=== PATIENT | female | born 1960 | race Caucasian/White ===

== ENCOUNTER 2019-08-21 12:01 | Outpatient (CLI) | payer BC, SELFPAY ==
--- NOTE | 2019-08-21 | XR_ITS ---
WS: [id number] Right shoulder, 2 views, 08/21/2019 Clinical Data: RT SHOULDER PAIN Comparison: None. Findings: No fractures or dislocations are seen. The AC joint is normal. The adjacent right clavicle, right sca pula and ribs are normal. The soft tissues are unremarkable. XR/XR shoulder RT min 2V* [id number] Impression: Negative right shoulder.
== END 2019-08-21 12:02 | disposition home or self-care (01) ==
LOC: RADWPI 12:06
PROVIDERS: Family Provider Family Medicine; PCP Family Medicine; Visit Provider Nurse Practitioner Family
DX: M25.511 Pain in right shoulder (principal)
CPT/HCPCS: 73030

== ENCOUNTER 2020-03-13 13:58 | Outpatient (CLI) | payer OTHER, SELFPAY ==
--- NOTE | 2020-03-13 14:04 | MM_ITS ---
WS: [id number] BILATERAL SCREENING DIGITAL MAMMOGRAM WITH CAD HISTORY: SCREENING COMPARISON: 01/28/2019 and 04/06/2016 Bilateral CC and MLO views submitted. Computer aided detection analyzed. Breast composition: There are scattered areas of fibroglandular density. No suspicious masses, microc alcifications or architectural distortion. Stable asymmetry and nodules in the upper outer quadrant o f the LEFT breast. MM/[place] [id number] IMPRESSION: BI-RADS: 2-Benign FOLLOW UP: 1 Year Follow-up
== END 2020-03-13 13:59 | disposition home or self-care (01) ==
LOC: RADSHAW 14:01
PROVIDERS: PCP Internal Medicine; Visit Provider Internal Medicine
DX: Z12.31 Encounter for screening mammogram for malignant neoplasm of breast (principal)
CPT/HCPCS: 77067

== ENCOUNTER 2021-08-02 09:20 | Outpatient (CLI) | payer OTHER, SELFPAY ==
--- NOTE | 2021-08-02 09:30 | MM_ITS ---
WS: [id number] BILATERAL SCREENING DIGITAL BREAST TOMOSYNTHESIS MAMMOGRAM WITH CAD HISTORY: SCREENING COMPARISON: 03/13/2021, 01/28/2019 and 04/06/2016 Bilateral CC and MLO views with tomosynthesis and synthetic mammography submitted. Computer aided det ection analyzed. Breast composition: There are scattered areas of fibroglandular density. No suspicious masses, microc alcifications or architectural distortion. Stable calcifications and nodules within each breast. MM/[place] [id number] IMPRESSION: BI-RADS: 2-Benign FOLLOW UP: 1 Year Follow-up
== END 2021-08-02 09:21 | disposition home or self-care (01) ==
LOC: RAD 09:22
PROVIDERS: PCP Internal Medicine; Visit Provider Nurse Practitioner Family
DX: Z12.31 Encounter for screening mammogram for malignant neoplasm of breast (principal)
CPT/HCPCS: 77063; 77067

== ENCOUNTER 2022-06-20 15:40 | Outpatient (CLI) | payer OTHER, SELFPAY ==
--- NOTE | 2022-06-20 | MR_ITS ---
WS: [id number] MRI RIGHT KNEE NONCONTRAST TECHNIQUE: Axial PD, coronal PD fat sat, coronal PD, sagittal PD, and sagittal PD fat-sat images obta ined. CLINICAL INFORMATION: RT KNEE PAIN COMPARISON: None. FINDINGS: Distal quadriceps and patella tendons are intact. Hypertrophic patella. Small amount of prepatellar a nd infrapatellar soft tissue edema. Moderate tricompartmental arthritis. Normal ACL and PCL. Thinning of the medial meniscus. Peripheral extrusion of the medial meniscus with a chronic appearing tear wi th blunting of the medial meniscal root. Moderate narrowing of the medial joint compartment. Small suprapatellar effusion. Normal medial and lateral patellar retinaculum. Normal popliteal fossa. Normal medial and lateral collateral ligaments. Moderate chondromalacia patella worse involving the l ateral patella facet. MR/MR knee RT wo con* [id number] IMPRESSION: 1. Prepatellar and infrapatellar soft tissue edema likely due to recent trauma .Correlation for prepatellar bursitis. 2. Normal ACL and PCL. 3. Moderate tricompartmental arthritis worse in the medial joint compartment. Chronic appearing blunting of the medial meniscal root likely due to chronic te ar with peripheral extrusion. 4. Normal medial and lateral collateral ligaments. 5. Grade III chondromalacia involving the medial joint compartment. 6. Mild to moderate chondromalacia patella. Outbridge grading:
== END 2022-06-20 15:41 | disposition home or self-care (01) ==
LOC: RAD 15:56
PROVIDERS: PCP Internal Medicine; Visit Provider Orthopaedic Surgery
DX: M70.41 Prepatellar bursitis, right knee (principal); M17.11 Unilateral primary osteoarthritis, right knee; M22.41 Chondromalacia patellae, right knee; R60.0 Localized edema
CPT/HCPCS: 73721

== ENCOUNTER 2022-08-04 08:44 | Outpatient (CLI) | payer OTHER, SELFPAY ==
--- NOTE | 2022-08-04 08:52 | MM_ITS ---
WS: [id number] BILATERAL SCREENING DIGITAL TOMOSYNTHESIS MAMMOGRAM WITH CAD HISTORY: SCREENING COMPARISON: 08/02/2021 03/13/2020 Bilateral CC and MLO views with tomosynthesis and synthetic mammography submitted. Computer aided det ection analyzed. Breast composition: There are scattered areas of fibroglandular density. No suspicious masses, microc alcifications or architectural distortion. Stable masses within the LEFT breast upper outer quadrant. MM/[place] [id number] IMPRESSION: BI-RADS: 2-Benign FOLLOW UP: 1 Year Follow-up
== END 2022-08-04 08:45 | disposition home or self-care (01) ==
PROVIDERS: PCP Internal Medicine; Visit Provider Nurse Practitioner Family
DX: Z12.31 Encounter for screening mammogram for malignant neoplasm of breast (principal)
CPT/HCPCS: 77063; 77067

== ENCOUNTER 2023-07-21 10:04 | Outpatient (CLI) | payer OTHER, SELFPAY ==
--- NOTE | 2023-07-21 10:24 | XRR_ITS ---
PROCEDURE INFORMATION: Exam: XR Left Ribs with PA Chest Exam date and time: 07/21/2023 10:33 AM Age: 62 years old Clinical indication: Chest wall pain; Patient HX: Intermnittent posterior left lower rib pain; No known injury; Additional info: Left sided rib pain TECHNIQUE: Imaging protocol: Radiologic exam of the left ribs with PA chest. Views: 3 views COMPARISON: No relevant prior studies available. FINDINGS: Lungs: No pulmonary consolidation. Pleural spaces: No pleural effusion. No pneumothorax. Heart/Mediastinum: The heart appears enlarged; this may be exaggerated by AP technique and low lung volumes. No gross evidence of pneumomediastinum. Bones/joints: No acute fracture is identified. XR/XR ribs LT 2V* [id number] IMPRESSION: 1. No acute fracture is identified. 2. The heart appears enlarged; this may be exaggerated by AP technique and low lung volumes.
== END 2023-07-21 10:05 | disposition home or self-care (01) ==
PROVIDERS: PCP Internal Medicine; Visit Provider Nurse Practitioner Family
DX: R07.81 Pleurodynia (principal)
CPT/HCPCS: 71100

== ENCOUNTER 2024-05-10 19:43 | Emergency (ER) | payer OTHER, SELFPAY ==
[2024-05-10 19:51] VITALS: BP 188/106; PULSE 65; RESP 16; TEMP 36.7; O2SAT 98
--- NOTE | 2024-05-10 19:58 | CTR_ITS ---
PROCEDURE INFORMATION: Exam: CT Cervical Spine Without Contrast Exam date and time: 05/10/2024 8:20 PM Age: 63 years old Clinical indication: Injury or trauma; Fall; Blunt trauma; Patient fell walking down concrete steps and sustained headstrike. Hematoma to RT posterior parietal. ; Additional info: Fall, head trauma TECHNIQUE: Imaging protocol: Computed tomography of the cervical spine without contrast. Radiation optimization: All CT scans at this facility use at least one of these dose optimization techniques: automated exposure control; mA and/or kV adjustment per patient size (includes targeted exams where dose is matched to clinical indication); or iterative reconstruction. COMPARISON: CT head wo con* [id number] 05/10/2024 8:17 PM RADIATION DOSE METRICS: Total DLP (mGy-cm): 512.98 FINDINGS: Bones: No acute fracture. Normal alignment. No significant disc bulge or herniation. No severe spinal canal stenosis. No significant neural foraminal narrowing. There is anterior and posterior osteophyte formation involving the lower cervical spine. Diffuse facet arthropathy. Lungs: Lung apices are normal. Soft tissues: Unremarkable. CT/CT cervical spin wo con* [id number] IMPRESSION: No acute findings. Mild degenerative changes.
--- NOTE | 2024-05-10 19:58 | XRR_ITS ---
PROCEDURE INFORMATION: Exam: XR Left Shoulder Exam date and time: 05/10/2024 8:05 PM Age: 63 years old Clinical indication: Injury or trauma; Fall; Blunt trauma (contusions or hematomas); Patient fell walking down concrete steps. C/O left shoulder pain. TECHNIQUE: Imaging protocol: Radiologic exam of the left shoulder. Views: 2 or more views. COMPARISON: CR XR ribs LT 2V* [id number] 07/21/2023 10:33 AM FINDINGS: Bones/joints: No findings of fracture or dislocation. There is mild glenohumeral and acromioclavicular osteoarthritis. Visualized left ribs appear intact. Soft tissues: Normal. XR/XR shoulder LT min 2V* [id number] IMPRESSION: No evidence of acute fracture or dislocation. Mild glenohumeral and acromioclavicular osteoarthritis.
--- NOTE | 2024-05-10 19:58 | CTR_ITS ---
PROCEDURE INFORMATION: Exam: CT Head Without Contrast Exam date and time: 05/10/2024 8:17 PM Age: 63 years old Clinical indication: Injury or trauma; Fall; Blunt trauma (contusions or hematomas); Patient fell walking down concrete steps and sustained headstrike. Hematoma to RT posterior parietal. ; Additional info: Fall, head trauma TECHNIQUE: Imaging protocol: Computed tomography of the head without contrast. Radiation optimization: All CT scans at this facility use at least one of these dose optimization techniques: automated exposure control; mA and/or kV adjustment per patient size (includes targeted exams where dose is matched to clinical indication); or iterative reconstruction. COMPARISON: No relevant prior studies available. RADIATION DOSE METRICS: Total DLP (mGy-cm): 1103.48 FINDINGS: Brain: Normal. No hemorrhage. Unremarkable white matter. No mass effect. Cerebral ventricles: No ventriculomegaly. Paranasal sinuses: Visualized sinuses are unremarkable. No fluid levels. Mastoid air cells: Visualized mastoid air cells are well aerated. Bones: Unremarkable. No acute fracture. Soft tissues: Mild right posterior scalp soft tissue swelling. CT/CT head wo con* [id number] IMPRESSION: 1. No acute intracranial abnormality. 2. Mild right posterior scalp soft tissue swelling
[2024-05-10 20:06] VITALS: BP 168/82; PULSE 70; RESP 16; O2SAT 97
--- NOTE | 2024-05-10 20:37 | ED_ITS ---
HPI - Fall General: Chief Complaint: Fall Stated Complaint: Fell Hit head on L side and back, L hand Time Seen by Provider: 05/10/24 19:58 Source: patient Mode of arrival: ambulatory Limitations: no limitations History of Present Illness: 63yo female presents with significant ot her for evaluation following a slip and fall. States was walking outside and slipped on the wet concrete, falling backward. She landed on the posterior left shoulder area, then hit her head. States she has previous history of left rib pain that she sees a chiropractor for. States she does not have pain with touch of the left posterior ribs, only with movement. She denies loss of consciousness, vomiting, use of blood thinners, difficulty breathing, shortness of breath, any other concerns at this time. Related Data Previous Rx's ?Medication ?Instructions ?Recorded prednisone 20 mg tablet 20 mg PO BID 5 days #10 tabs 11/27/23 ketorolac 10 mg tablet 10 mg PO Q6H PRN pain 5 days #20 05/10/24 tabs tizanidine 4 mg tablet 4 mg PO Q8H PRN muscle spast icity 05/10/24 #20 tabs Allergies Allergy/AdvReac Type Severity Reaction Status Date / Time No Known Allergies Allergy Verified 05/10/24 19:56 Review of Systems Const: Denies: fever(s) or chills Eyes: Denies: change in vision Resp: Denies: dyspnea or pain on inspiration GI: Denies: vomiting Musc: Reports: extremity pain (left shoulder) Neuro: Denies: numbness in extremities or weakness in extremities [facility] ED PFSH: Social History (Updated 11/27/23 @ 14:21 by Alice Baeza NP) Smoking and tobacco/nicotine status: never used tobacco/nicotine Alcohol intake: never Substance/Drug Use: never Physical Exam Const: COMMON NORMALS: no acute distress, patient oriented x3 and alert GE NERAL APPEARANCE: cooperative ORIENTATION/CONSCIOUSNESS: Yes awake OTHER: Patient is sitting upright on the stretcher in [facility]. She is able to give history with no difficulty. Family is at bedside. HENMT: COMMON NORMALS: normocephalic and Normal external nose present HEAD & SCALP: normocephalic NOSE: Normal external nose present Chest: CHEST: Yes Symmetrical chest wall rise and No localized rib tenderness with anteroposterior compression Resp: COMMON NORMALS: normal respiratory effort, No use of accessory muscles and clear to auscultation bilaterally EFFORT & INSPECTION: Yes able to speak in complete sentences AUSCULTATION: clear to auscultation bilaterally Cardio: COMMON NORMALS: regular rate and regular rhythm RATE: regular rate RHYTHM: regular rhythm Extremity: LEFT UPPER EXTREMITY: Yes shoulder joint (pain anterior area with movement) Left shoulder joint: Yes ROM Neuro: COMMON NORMALS: patient oriented x3 SENSORIUM/ORIENTATION: Yes alert Course Reevaluation(s): Reevaluation #1: Reevaluated patient after medication ministration. She reported that she was feeling somewhat better until she coughed, now her ribs are really hurting her. Discussed radiology reports. Given the increased pain of the ribs, will proceed with rib imaging. Time: 22:12 Vital Signs: Vital signs: Vital Signs Temperature 98.0 F 05/10/24 19:51 Pulse Rate 70 05/10/24 20:06 Respiratory Rate 16 05/10/24 20:06 Blood Pressure 168/82 05/10/24 20:06 Pulse Oximetry 97 05/10/24 20:06 Oxygen Delivery Me thod Room Air 05/10/24 20:06 MDM - Fall Medical Decision Making 63yo female presents with significant other for evaluation following a slip and fall. States was walking outside and slipped on the wet concrete, falling backward. She landed on the posterior left shoulder area, then hit her head. States she has previous history of left rib pain that she sees a chiropractor for. States she does not have pain with touch of the left posterior ribs, only with movement. She denies loss of consciousness, vomiting, use of blood thinners, difficulty breathing, shortness of breath, any other concerns at this time. Patient is nontoxic in appearance. Vital signs stable. CT of the head does show mild right posterior scalp soft tissue swelling. CT cervical spine with mild degenerative changes, otherwise unremarkable. X-ray of the shoulder does revealed glenohumeral and acromioclavicular osteoarthritis. Rib series with no displaced rib fracture seen, no evidence of pneumothorax, pulmonary parenchymal contusion, or pleural effusion. Discussed with patient and family. Patient did receive ketorolac and orph enadrine while in the emergency department. She initially reported improvement in her pain, but did have increased rib pain following a cough. Discussed with patient she would likely be very sore for the next several days. Patient is stable for discharge. Prescription of ketorolac and tizanidine sent to patient's pharmacy, sedation precautions provided. Recommend she follow-up with primary care, call Monday with an update of symptoms and to discuss a recheck. Return precautions provided. Patient states understanding and has no further questions or concerns at this time. Lab Data Radiology Impressions Cervical Spine CT 05/10/24 19:58 IMPRESSION: No acute findings. Mild degenerative changes. Head CT 05/10/24 19:58 IMPRESSION: 1. No acute intracranial abnormality. 2. Mild right posterior scalp soft tissue swelling Shoulder X-Ray 05/10/24 19:58 IMPRESSION: No evidence of acute fracture or dislocation. Mild glenohumeral and acromioclavicular osteoarthritis. Ribs X-Ray 05/10/24 22:12 IMPRESSION: 1. No acute cardiopulmonary abnormality. 2. No displaced rib fractures are seen, but there is limited plain film sensitivity for nondisplaced fractures. Regardless, there is no evidence of pneumothorax, pulmonary parenchymal contusion, or pleural effusion. All radiology interpretation(s) finalized by discharge Discharge Plan Discharge Patient Disposition: Home Clinical Impression: Pain of shoulder muscle, Rib pain on left side Fall from slipping on wet surface Qualifiers: Encounter type: initial encounter Qualified Code(s): W01.0XXA - Fall on same level from slipping, tripping and stumbling without subsequent striking against object, initial encounter Head injury, acute Qualifiers: Encounter type: initial encounter Qualified Code(s): S09.90XA - Unspecified injury of head, initial encounter Condition: Stable Prescriptions: New ketorolac 10 mg tablet 10 mg PO Q6H PRN (Reason: pain) 5 Days Qty: 20 0RF tizanidine 4 mg tablet 4 mg PO Q8H PRN (Reason: muscle spasticity) Qty: 20 0RF No Action prednisone 20 mg tablet 20 mg PO BID 5 Days Qty: 10 0RF Discharge Orders: Discharge ED (Routine); Ordered 05/10/24 Ordered By: Aurelio Durand Referrals: Leonila Blanca MD [Primary Care Provider] - Discharge Diet: Usual diet Discharge Activity: Increase activity as tolerated Patient Instructions: Head Injury (ED), Exercises for Shoulder Abduction and Adduction (ED) Activity Restrictions/Additional Instructions: Degenerative changes were noted on the CT of the cervical spine and arthritis was noted of the left shoulder region, otherwise your imaging was unremarkable Ketorolac and tizanidine have been sent to your pharmacy to help with the pain. Please do not take ibuprofen, Motrin, or naproxen while taking ketorolac Please do not drive or operate heavy machinery while taking tizanidine as this medication may make you sleepy Follow-up with primary care, call Monday with an update of symptoms and to discuss to recheck Return to the emergency department if any further injury, rapid worsening symptoms, and as needed Print Language: Spanish Coding Level of Care Code ED Turning Machine Operator Helper for Ariella Hernandez
[2024-05-10] MEDS: ketorolac 30 mg/mL INJ IM (21:39)
[2024-05-10] MEDS: orphenadrine 30 mg/mL Inj 2 mL 60 MG IM (21:39)
--- NOTE | 2024-05-10 22:12 | XRR_ITS ---
PROCEDURE INFORMATION: Exam: XR Left Ribs with PA Chest Exam date and time: 05/10/2024 10:20 PM Age: 63 years old Clinical indication: Injury or trauma; Fall; Rib area, left side; Blunt trauma; Patient fell walking down concrete steps. C/O posterior left sided rib pain; Additional info: Fall, acute on chronic rib pain TECHNIQUE: Imaging protocol: Radiologic exam of the left ribs with PA chest. Views: 3 views COMPARISON: CR XR ribs LT 2V* [id number] 07/21/2023 10:33 AM FINDINGS: Lungs: Clear, symmetrically inflated lungs. Pleural spaces: No pleural effusion. No pneumothorax. Heart/Mediastinum: Moderate cardiomegaly. Bones/joints: No visible rib fractures. Imaged portions of the shoulder girdle is normal for age. XR/XR ribs LT mn 3V w [id number] IMPRESSION: 1. No acute cardiopulmonary abnormality. 2. No displaced rib fractures are seen, but there is limited plain film sensitivity for nondisplaced fractures. Regardless, there is no evidence of pneumothorax, pulmonary parenchymal contusion, or pleural effusion.
[2024-05-10 23:45] VITALS: BP 140/76; PULSE 65; O2SAT 96
== END 2024-05-10 23:15 | disposition home or self-care (01) ==
PROVIDERS: Emergency Provider Nurse Practitioner; PCP Internal Medicine
DX: M25.512 Pain in left shoulder (principal); R07.81 Pleurodynia; W01.0XXA Fall on same level from slipping, tripping and stumbling without subsequent striking against object, initial encounter; S09.90XA Unspecified injury of head, initial encounter
CPT/HCPCS: 70450; 71101; 72125; 73030; 96372; 99284; J1885; J2360

== ENCOUNTER 2025-01-28 12:05 | Outpatient (CLI) | payer OTHER, SELFPAY ==
--- NOTE | 2025-01-28 12:10 | USCV_ITS ---
Augusto Chrissy Age: 64 Gender: F : 1960 Exam Date: 01/28/2025 12:42 Ordering Phys: Danielle Briscoe DO Technologist: SATURNINO [place] [facility] [place]: left leg pain/ swelling HISTORY: Lower extremity pain. Lower extremity swelling-LEFT PROCEDURES: Venous duplex imaging was performed in only the left lower extremity. The following venous structures were evaluated: common femoral vein, profunda vein, proximal portion of the greater saphenous vein, superficial femoral vein, and the popliteal vein. In addition, the posterior tibial and peroneal trunk were evaluated. FINDINGS: Normal 2-D Doppler and augmentation and compressibility throughout the lower extremity venous structures. Additional imaging through the proximal calf veins also reveals no thrombus. Limited evaluation of the greater saphenous vein is patent with no thrombus. CONCLUSIONS No DVT left lower extremity. Dr. Alexia Boggs DO (Electronically Signed) Final Date: 28 January 2025 14:47 S
== END 2025-01-28 12:06 | disposition home or self-care (01) ==
LOC: RAD 12:07
PROVIDERS: PCP Internal Medicine; Visit Provider Family Medicine
DX: M79.89 Other specified soft tissue disorders (principal)
CPT/HCPCS: 93971